=== PATIENT | male | born 1985 | race Caucasian/White ===

== ENCOUNTER 2017-04-23 16:44 | Emergency (ER) | payer MEDICAID, OTHER ==
[~2017-04-23] VITALS: Ht 182.9 cm; Wt 74.0 kg
[2017-04-23 16:52] VITALS: Ht 182.9 cm; Wt 74.0 kg
--- NOTE | 2017-04-23 17:26 | ERD ---
ER Documentation Chief Complaint Date/Time DATE: 04/23/17 TIME: 17:24 Chief Complaint Headache, no visual changes, no N/V. L rib pain. HPI 31-year-old male otherwise healthy comes emergency department with headache after head injury, also complains of "heart pain" for 2 days. Patient states that he was moving a box on Thursday, and then he turned to the side and hit his head against the wall and he states he may have had a brief loss of consciousness. He denies paresthesias, weakness or blurry vision. Head pain is at the top of his head. He also complains of heart pain, he points to the left side of his chest, it is intermittent, on and off for the past 2 days and states that is getting better. Is not exertional, there is no diaphoresis or radiation of pain. ROS All systems reviewed and are negative except as per history of present illness. Allergies Allergies: Coded Allergies: No Known Allergy (Unverified , 04/23/17) PMhx/Soc Medical and Surgical Hx: pt denies Medical Hx, pt denies Surgical Hx History of Surgery: No Anesthesia Reaction: No Hx Neurological Disorder: No Hx Respiratory Disorders: No Hx Cardiac Disorders: No Hx Psychiatric Problems: No Hx Miscellaneous Medical Probl: No Hx Alcohol Use: Yes (socially) Hx Substance Use: No Hx Tobacco Use: No Smoking Status: Never smoker Physical Exam Vitals Vital Signs Date Time Temp Pulse Resp B/P Pulse Ox O2 Delivery O2 Flow Rate FiO2 04/23/17 19:39 98.9 72 18 125/88 98 Room Air 04/23/17 16:52 99.2 84 18 132/105 100 Physical Exam General: Well-developed, well-nourished. The patient appears in no acute distress. HEENT: Head is normocephalic, atraumatic. No scleral icterus. No meningismus Lungs: Clear to auscultation. Normal air movement. Heart: Regular rate and rhythm. S1 and S2 are normal. No murmurs, gallops, or rubs. Abdomen: Soft, nontender, nondistended. Bowel sounds are normoactive. Extremities: No clubbing or cyanosis. Normal pulses. Moving extremities x 4. No weakness. Neurologic: Alert and oriented 3. No focal deficits. Cranial nerves II 12 grossly intact, speech and gait normal. Skin: Normal turgor. No rash or lesions. Result Diagram: 04/23/17 1730 04/23/17 1730 Results 24 hrs Laboratory Tests Test 04/23/17 17:30 White Blood Count 5.710^3/ul Red Blood Count 5.3610^6/ul Hemoglobin 15.8g/dl Hematocrit 45.9% Mean Corpuscular Volume 85.6fl Mean Corpuscular Hemoglobin 29.5pg Mean Corpuscular Hemoglobin Concent 34.4g/dl Red Cell Distribution Width 11.7% Platelet Count 33958^3/UL Mean Platelet Volume 9.0fl Neutrophils % 63.2% Lymphocytes % 26.0% Monocytes % 9.1% Eosinophils % 1.2% Basophils % 0.3% Nucleated Red Blood Cells % 0.0/100WBC Neutrophils # 3.610^3/ul Lymphocytes # 1.510^3/ul Monocytes # 0.510^3/ul Eosinophils # 0.110^3/ul Basophils # 0.010^3/ul Nucleated Red Blood Cells # 0.010^3/ul Sodium Level 139mmol/L Potassium Level 4.5mmol/L Chloride Level 101mmol/L Carbon Dioxide Level 28mmol/L Anion Gap 15 Blood Urea Nitrogen 15mg/dl Creatinine 0.94mg/dl Glucose Level 101mg/dl Calcium Level 9.6mg/dl Troponin I < 0.012ng/ml PROCEDURE: XR PA chest CLINICAL INDICATION: Chest pain TECHNIQUE: A PA radiograph of the chest was submitted. COMPARISON: None. FINDINGS: Support Hardware: None Cardiovascular: The cardiovascular silhouette appears unremarkable. Lung Estes: Minimal pleural parenchymal scarring is seen at the pulmonary apices but no infiltrate is evident. Pleural Spaces: No pneumothorax or pleural effusion is identified. Osseous Structures: The osseous structures appear intact. Soft Tissues: The soft tissues appear unremarkable. IMPRESSION: 1. Minimal pleural parenchymal scarring at the pulmonary apices. 2. Otherwise, unremarkable PA chest. Physician Akash Date Time Electronically viewed and signed by Physician Akash on 04/23/2017 19:32 RH/ CC: AYSHA ROGERS PA-C DIAGNOSTIC IMAGING REPORT Patient: TERRELL PUENTE : 1985 Age: 31 Sex: M MR #: [id number] DOS: 04/23/17 1713 Ordering MD: AYSHA ROGERS PA-C Location: [facility] Room/Bed: PROCEDURE: CT Head without contrast. CLINICAL INDICATION: Head injury, headache TECHNIQUE: Continuous axial CT images were obtained from the base of skull to the vertex. No contrast was administered. The calculated radiation dose measures 720 mGy centimeters. The CTDI measures 44 mGy COMPARISON: No prior studies are available for comparison. FINDINGS: The ventricles are symmetric and normal in size. There is no mass effect or midline shift. There is no abnormal intra-axial or extra-axial fluid collection. There is no evidence of intracranial hemorrhage. There are no abnormal areas of increased or decreased attenuation in the brain parenchyma. The bony calvarium is intact. The orbital soft tissue contents are unremarkable. Paranasal sinuses appear clear IMPRESSION: No mass effect or acute intracranial bleed. Unremarkable CT brain. RPTAT: HBST .Orlando Love MD, MD Date Time Electronically viewed and signed by .Orlando Love MD, MD on 04/23/2017 17:49 .T/ CC: AYSHA ROGERS PA-C Procedures/MDM 12-lead EKG(interpreted by supervising physician): Dr. Plunkett Rate/Rhythm: Normal Sinus Rhythm, rate of 65 QRS, ST, T-waves: No changes consistent w/ acute ischemia, no intervals, no dysrhythmias, no ectopy Impression: No evidence of ischemia or arrhythmia MDM: 31-year-old male comes in with "heart pain" that started 2 days ago, rule out acute coronary syndrome. Troponin was negative, EKG shows no ischemic findings, arrhythmias, and electrolytes are unremarkable. I doubt acute coronary syndrome, pulmonary embolus, dissection. Chest x-ray is unremarkable, no evidence of pneumothorax, no pneumonia. He also comes in secondarily for headache after head injury, CT head was unremarkable, there is no intracranial hemorrhage or skull fracture, patient is neurologically intact and alert and oriented. At this time I feel that the patient can safely be managed on outpatient basis. He will be asked to recheck with his primary care doctor. Departure Diagnosis: Primary Impression: Chest pain Additional Impression: Head injury AYSHA ROGERS PA-C Apr 23, 2017 17:26
[2017-04-23 17:35] LABS: ADD SCAN DIFF NO
[2017-04-23 17:37] LABS: BASOPHILS % 0.3 % (0.0-2.0); EOSINOPHILS # 0.1 10^3/ul (0.0-0.5); EOSINOPHILS % 1.2 % (0.0-7.0); HEMATOCRIT 45.9 % (42.0-52.0); HEMOGLOBIN 15.8 g/dl (14.0-18.0); LYMPHOCYTES # 1.5 10^3/ul (0.8-2.9); MEAN CORPUSCULAR HEMOGLOBIN 29.5 pg (29.0-33.0); MEAN CORPUSCULAR HGB CONC 34.4 g/dl (32.0-37.0); MEAN CORPUSCULAR VOLUME 85.6 fl (82.0-101.0); MONOCYTE # 0.5 10^3/ul (0.3-0.9); MONOCYTES % 9.1 % (0.0-11.0); NEUTROPHIL # 3.6 10^3/ul (1.6-7.5); NEUTROPHILS % 63.2 % (39.0-77.0); PLATELET COUNT 234 10^3/UL (140-415); RED BLOOD COUNT 5.36 10^6/ul (4.70-6.10); RED CELL DISTRIBUTION WIDTH 11.7 % (11.5-14.5); WHITE BLOOD COUNT 5.7 10^3/ul (4.8-10.8)
--- NOTE | 2017-04-23 17:50 | RADRPT ---
PROCEDURE: CT Head without contrast. CLINICAL INDICATION: Head injury, headache TECHNIQUE: Continuous axial CT images were obtained from the base of skull to the vertex. No cont rast was administered. The calculated radiation dose measures 720 mGy centimeters. The CTDI measures 44 mGy COMPARISON: No prior studies are available for comparison. FINDINGS: The ventricles are symmetric and normal in size. There is no mass effect or midline shift. There i s no abnormal intra-axial or extra-axial fluid collection. There is no evidence of intracranial hem orrhage. There are no abnormal areas of increased or decreased attenuation in the brain parenchyma. The bony calvarium is intact. The orbital soft tissue contents are unremarkable. Paranasal sinuses appear clear IMPRESSION: No mass effect or acute intracranial bleed. Unremarkable CT brain. RPTAT: HBST .Orlando Love MD, Date Time Electronically viewed and signed by .Orlando Love MD, on 04/23/2017 17:49 .T/
[2017-04-23 18:02] LABS: ANION GAP 15 (8-16); BLOOD UREA NITROGEN 15 mg/dl (7-20); CALCIUM 9.6 mg/dl (8.4-10.2); CARBON DIOXIDE 28 mmol/L (21-31); CHLORIDE 101 mmol/L (97-110); CREATININE 0.94 mg/dl (0.61-1.24); GLUCOSE 101 mg/dl (70-220); POTASSIUM 4.5 mmol/L (3.5-5.1); SODIUM 139 mmol/L (135-144)
[2017-04-23 18:14] LABS: TROPONIN-I < 0.012 ng/ml (0.00-0.12)
--- NOTE | 2017-04-23 19:32 | RADRPT ---
PROCEDURE: XR PA chest CLINICAL INDICATION: Chest pain TECHNIQUE: A PA radiograph of the chest was submitted. COMPARISON: None. FINDINGS: Support Hardware: None Cardiovascular: The cardiovascular silhouette appears unremarkable. Lung Estes: Minimal pleural parenchymal scarring is seen at the pulmonary apices but no infiltrate is evident. Pleural Spaces: No pneumothorax or pleural effusion is identified. Osseous Structures: The osseous structures appear intact. Soft Tissues: The soft tissues appear unremarkable. IMPRESSION: 1. Minimal pleural parenchymal scarring at the pulmonary apices. 2. Otherwise, unremarkable PA chest. Physician Akash Date Time Electronically viewed and signed by Physician Akash on 04/23/2017 19:32 /
[2017-04-23 19:39] VITALS: BP 125/88; PULSE 72; RESP 18; TEMP 98.9
== END 2017-04-23 19:40 | disposition home or self-care (01) ==
LOC: FTE 16:44
DX: S29.001A Unspecified injury of muscle and tendon of front wall of thorax, initial encounter (principal); R51 Headache; R07.9 Chest pain, unspecified; W22.8XXA Striking against or struck by other objects, initial encounter; Y92.9 Unspecified place or not applicable
CPT/HCPCS: 70450; 71010; 80048; 84484; 85025; 93005

== ENCOUNTER 2017-12-07 14:14 | Emergency (ER) | END 2017-12-07 16:08 | disposition home or self-care (01) ==